=== PATIENT | female | born 1965 | race Caucasian/White ===

== ENCOUNTER 2019-04-24 17:14 | Emergency (ER) | payer OTHER, SELFPAY ==
[2019-04-24 17:18] VITALS: BP 146/90; PULSE 86; RESP 20; TEMP 36.4; O2SAT 97; BMI 44.6
[2019-04-24 17:51] LABS: Add Manual Diff / Slide Review NO; Basophils Absolute Auto 100 /uL (0-100); Basophils Percent Auto 1.3 % (0-2); Eosinophils Absolute Auto 300 /uL (0-450); Eosinophils Percent Auto 2.9 % (2-4); Hematocrit 40.1 % (36-46); Hemoglobin 13.4 g/dL (12.0-16.0); Lymphocytes Absolute Auto 2200 /uL (1100-4500); Lymphocytes Percent Auto 24.2 % (25-40); Mean Corpuscular HGB Conc 33.3 % (30-36); Mean Corpuscular Hemoglobin 29.1 PG (26-34); Mean Corpuscular Volume 87.3 fL (80-100); Monocytes Absolute Auto 700 /uL (0-900); Monocytes Percent Auto 7.3 % (3-14); Neutrophils Absolute Auto 5900 /uL (1500-7000); Neutrophils Percent Auto 64.3 % (50-75); Platelet Count 219 X10^3/uL (150-400); Red Cell Distribution Width 14.8 % (11.6-14.8); White Blood Cell Count 9.1 X10^3/uL (4.5-11.0)
[2019-04-24 17:56] LABS: INR 1.1 (0.9-1.3); Prothrombin Time 12.5 SECONDS (10.1-12.7)
[2019-04-24 17:57] LABS: Alanine Aminotransferase 46 IU/L (9-52); Albumin 4.4 g/dL (3.5-5.0); Albumin Globulin Ratio 1.4 (1.0-2.8); Alkaline Phosphatase 125 U/L (38-126); Aspartate Aminotransferase 50 IU/L (14-36); BUN Creatinine Ratio 22.5 (6-22); Bilirubin Total 0.4 mg/dL (0.2-1.3); Blood Urea Nitrogen 18 mg/dL (7-17); Calcium 10.2 mg/dL (8.4-10.2); Carbon Dioxide 31 mmol/L (22-32); Chloride 102 mmol/L (98-107); Estimated Glomerular Filt Rate > 60.0 mL/min (>60); Globulin 3.2 g/dL (1.7-4.1); Glucose 98 mg/dL (70-100); HEMOLYSIS < 15 (0-50); Potassium 4.2 mmol/L (3.4-5.1); Sodium 142 mmol/L (137-145); Total Protein 7.6 g/dL (6.3-8.2)
[2019-04-24 17:59] LABS: PTT Partial Thromboplastin Tim 41 SECONDS (26.4-36.2)
--- NOTE | 2019-04-24 18:50 | ED.FEMALEGU ---
HPI - Female Genitourinary General Chief complaint: Vaginal Bleeding Stated complaint: heavy vaginal bleeding x5hrs Time Seen by Provider: 04/24/19 18:33 Source: patient Mode of arrival: ambulatory Limitations: no limitations History of Present Illness HPI Narrative: Patient is a 53-year-old female here for evaluation of vaginal bleeding. Patient states the vaginal bleeding started today. States that was a fairly sudden onset while she was at work. Is having some lower abdominal cramping. She states that it is more bleeding than what her menstrual cycles use to be. She underwent menopause approximately 12 years ago. Her mother and grandmother both underwent menopause early in life. Patient states she is not currently on any control. Denies any urinary symptoms. No bowel changes. Denies any recent intercourse. Still has uterus. Related Data Allergies Allergy/AdvReac Type Severity Reaction Status Date / Time FENTANYL Allergy Severe NAUSEA/VOMI Uncoded 01/24/18 12:29 TING IBUPROFEN Allergy Severe FLANK Uncoded 01/24/18 12:29 PAIN, FEET SWELLING Review of Systems Constitutional Denies fever(s) and Denies headache(s) ENT Ears, Nose, Mouth, and Throat: Denies headache(s) Cardiovascular Denies chest pain and Denies dyspnea Respiratory Denies dyspnea Gastrointestinal Gastrointestinal: Reports abdominal pain, Reports cramping, Denies nausea and Denies vomiting Genitourinary Denies dysuria Comments: Vaginal bleeding Musculoskeletal Denies abnormal gait Integumentary/Breasts Denies rash Neurologic Denies abnormal gait and Denies headache(s) Hematologic/Lymphatic Denies easy bleeding and Denies easy bruising [facility] Medical History (Updated 04/25/19 @ 03:32 by Nelson Farrell DO) Atrial fibrillation (Acute) Healthy adult (Acute) Social History Smoking Status: Never smoker Social History Smoking Status: Never smoker Exam Initial Vital Signs Initial Vital Signs: Vital Signs Temperature 97.6 F 04/24/19 17:18 Pulse Rate 86 04/24/19 17:18 Respiratory Rate 20 04/24/19 17:18 Blood Pressure 146/90 H 04/24/19 17:18 Pulse Oximetry 97 04/24/19 17:18 Const General: cooperative, comfortable, well developed, well groomed and No acute distress Orientation: alert, awake and oriented x3 HENMT Head: normal to inspection and normocephalic Resp Effort & Inspection: normal respiratory effort Auscultation: clear to auscultation bilaterally Cardio Rate: regular rate Rhythm: regular rhythm GI Inspection: non-distended Palpation: soft and tender (Lower abdomen) Back/Spine/Pelvis Back: No CVA tenderness Skin Lesions: no lesions Rashes: no rashes Neuro General: alert, awake and oriented x3 Extrem General: normal to inspection and capillary refill normal Psych Appearance: grossly normal and well kempt Course Orders Ordered: ED Orders 04/24/19 19:01 US pelvic complete Stat Discontinued Medications Tramadol HCl (Ultram 50mg Prepack) 1 bottle MISC SEEINSTR ONE Stop: 04/24/19 22:10 Last Admin: 04/24/19 22:14 Dose: 1 bottle Vital Signs - 8 hr 04/24/19 19:36 04/24/19 20:30 04/24/19 21:00 Pulse Rate 63 75 69 Respiratory Rate 20 Blood Pressure [Left Arm] 126/62 120/67 123/69 Pulse Oximetry 98 100 97 04/24/19 21:30 04/24/19 22:15 Pulse Rate 68 76 Respiratory Rate Blood Pressure [Left Arm] 120/65 131/92 H Pulse Oximetry 99 99 MDM - Female Genitourinary Lab Data Attestation: I reviewed the patient's lab results. Result diagrams: 04/24/19 17:37 04/24/19 17:37 Lab Results 04/24/19 04/24/19 04/24/19 Range/Units 17:37 17:37 17:37 WBC 9.1 (4.5-11.0) X10^3/uL RBC 4.60 (4.0-5.2) X10^6/uL Hgb 13.4 (12.0-16.0) g/dL Hct 40.1 (36-46) % MCV 87.3 (80-100) fL MCH 29.1 (26-34) PG MCHC 33.3 (30-36) % RDW 14.8 (11.6-14.8) % Plt Count 219 (150-400) X10^3/uL Neut % (Auto) 64.3 (50-75) % Lymph % (Auto) 24.2 L (25-40) % [place] % (Auto) 7.3 (3-14) % Eos % (Auto) 2.9 (2-4) % Baso % (Auto) 1.3 (0-2) % Neut # (Auto) 5900 (3206-9602) /uL Lymph # (Auto) 2200 (1317-4180) /uL [place] # (Auto) 700 (0-900) /uL Eos # (Auto) 300 (0-450) /uL Baso # (Auto) 100 (0-100) /uL PT 12.5 (10.1-12.7) SECONDS INR 1.1 (0.9-1.3) APTT 41 H (26.4-36.2) SECONDS Sodium 142 (137-145) mmol/L Potassium 4.2 (3.4-5.1) mmol/L Chloride 102 (98-107) mmol/L Carbon Dioxide 31 (22-32) mmol/L BUN 18 H (7-17) mg/dL Creatinine 0.80 (0.52-1.04) mg/dL Estimated GFR > 60.0 (>60) mL/min BUN/Creatinine Ratio 22.5 H (6-22) Glucose 98 (70-100) mg/dL Calcium 10.2 (8.4-10.2) mg/dL Total Bilirubin 0.4 (0.2-1.3) mg/dL AST 50 H (14-36) IU/L ALT 46 (9-52) IU/L Alkaline Phosphatase 125 (38-126) U/L Total Protein 7.6 (6.3-8.2) g/dL Albumin 4.4 (3.5-5.0) g/dL Globulin 3.2 (1.7-4.1) g/dL Albumin/Globulin Ratio 1.4 (1.0-2.8) Imaging Data US - abdomen: Radiologist's impression: [address] [address] Ultrasound Report Signed Patient: Alem Dos Santos EMR#: [id number] : 1965Acct:[id number] Age/Sex: 53 / FDate of Service: 04/24/19 Loc: ED Accession Number: [id number] Procedure: US pelvic complete Ordering Provider: Nelson Farrell D.O. PROCEDURE: US PELVIC COMPLETE INDICATIONS: BLEEDING TECHNIQUE: Real-time scanning was performed of the pelvic organs, with image documentation. Additional endovaginal scanning was necessary due to incomplete visualization of the adnexal and endometrial structures by transabdominal scanning. COMPARISON: None. FINDINGS: Transabdominal scanning: Limited scanning through the kidneys shows no hydronephrosis. No pathologic free abdominal or pelvic fluid. Endovaginal scanning: Uterus: Uterus measures 7.4 x 3.0 x 4.6 cm. The endometrium measures 1.1 cm in combined thickness and appears heterogeneous with internal vascularity on color Doppler interrogation. Ovaries: The ovaries were not discretely visualized. No definite adnexal masses identified. IMPRESSION: 1. Abnormal heterogeneous thickening of the endometrium with internal vascularity. In a postmenopausal patient, the differential includes an endometrial mass, polyp, or endometrial hyperplasia. Recommend correlation clinically and further evaluation with hysteroscopy or pelvic MRI. Dictated by: Aldair Jones M.D. on 04/24/2019 at 21:41 Approved by: Aldair Jones M.D. on 04/24/2019 at 21:43 [facility] Narrative Medical decision making narrative: Patient is currently on anticoagulation secondary to paroxysmal atrial fibrillation. Her blood counts are unremarkable. The ultrasound does show a thickened endometrium and given that she is postmenopausal this is concerning for cancers. I discussed the ultrasound findings with the patient and informed her that she did need to follow up with her primary doctor regarding these ultrasound findings and discuss the indications for referral to see lock tender chief operator. She stated that she already had an appointment with her primary doctor scheduled later this week. We did discuss options here to include starting her on control to help control the bleeding however the patient declined and would rather talk with her primary provider. Patient was given return precautions and follow-up instructions. She expressed understanding and agreement with plan. Discharge Plan Departure Patient Disposition: Home Clinical Impression: Vaginal bleeding Discharge Date/Time: 04/24/19 22:15 Interventions: ED Discharge Assessment Last Done: 04/24/19 22:24 Instructions: DI for Vaginal Bleeding Activity Restrictions/Additional Instructions: Keep your appointment tomorrow with your primary provider to discuss the indications for referral to see lock tender chief operator. Return to the emergency department for any new or worsening symptoms like we discussed Referrals: Joan Taylor [Primary Care Provider] -
--- NOTE | 2019-04-24 18:53 | PC.NURSE ---
pt started with cramping yesterday, today at 12 noon pt developed large amount of bleeding. pt has been in menopause for 12 years.
--- NOTE | 2019-04-24 19:01 | DI.US.S_ITS ---
PROCEDURE: US PELVIC COMPLETE INDICATIONS: BLEEDING TECHNIQUE: Real-time scanning was performed of the pelvic organs, with image documentation. Additional endovaginal scanning was necessary due to incomplete visualization of the adnexal and endometrial structures by transabdominal scanning. COMPARISON: None. FINDINGS: Transabdominal scanning: Limited scanning through the kidneys shows no hydronephrosis. No pathologic free abdominal or pelvic fluid. Endovaginal scanning: Uterus: Uterus measures 7.4 x 3.0 x 4.6 cm. The endometrium measures 1.1 cm in combined thickness and appears heterogeneous with internal vascularity on color Doppler interrogation. Ovaries: The ovaries were not discretely visualized. No definite adnexal masses identified. IMPRESSION: 1. Abnormal heterogeneous thickening of the endometrium with internal vascularity. In a postmenopausal patient, the differential includes an endometrial mass, polyp, or endometrial hyperplasia. Recommend correlation clinically and further evaluation with hysteroscopy or pelvic MRI. Dictated by: Aldair Jones M.D. on 04/24/2019 at 21:41 Approved by: Aldair Jones M.D. on 04/24/2019 at 21:43
[2019-04-24 19:36] VITALS: BP 126/62; PULSE 63; RESP 20; O2SAT 98
[2019-04-24 20:30] VITALS: BP 120/67; PULSE 75; O2SAT 100
[2019-04-24 21:00] VITALS: BP 123/69; PULSE 69; O2SAT 97
[2019-04-24 21:30] VITALS: BP 120/65; PULSE 68; O2SAT 99
[2019-04-24] MEDS: TRAMADOL 50 MG PREPACK 1 BOTTLE MISC (22:14)
[2019-04-24 22:15] VITALS: BP 131/92; PULSE 76; O2SAT 99
== END 2019-04-24 22:15 | disposition home or self-care (01) ==
PROVIDERS: Emergency Medicine; Emergency Provider Emergency Medicine; Family Provider Nurse Practitioner Family; PCP Nurse Practitioner Family
DX: N93.9 Abnormal uterine and vaginal bleeding, unspecified (principal)
CPT/HCPCS: 36415; 76830; 76856; 80053; 85025; 85610; 85730; 99283; 99285

== ENCOUNTER → 2020-11-30 09:29 | Outpatient (CLI) | payer OTHER, SELFPAY ==
--- NOTE | 2020-11-30 09:31 | DI.RAD.S_ITS ---
PROCEDURE: FL UPPER GI SERIES INDICATIONS: Bariatric surgery status, the patient stated that there is some degree of concern that dehiscence of a prior gastric reduction surgery has occurred. She stated there is concern for possible extravasation of oral contrast related to this. For this reason Gastrografin was utilized as the oral contrast rather than barium. COMPARISON: None. FINDINGS: KUB: Preprocedural security expert film demonstrates a normal bowel gas pattern. No suspicious abdominal calcifications. Visualized solid organ contours appear normal. Bony structures appear unremarkable. Esophagus: There is normal esophageal peristalsis. No strictures, extrinsic mass effects, or diverticula. No elicited gastroesophageal reflux. No hiatal hernia. Stomach: Stomach is distensible but relatively small in size, without extrinsic mass effects. Pylorus and duodenal bulb demonstrate normal single-contrast morphology. There is ready transit of contrast through the gastric outlet into the small bowel. IMPRESSION: At no point over the course of this examination was evidence of gastric perforation seen or Gastrografin extravasation along the gastric margins. Normal peristalsis was seen within the esophagus and small bowel, including the duodenum. The morphology of the stomach over the cardia and body suggest prior gastric reduction surgery. Oral contrast transit ink through the stomach into the duodenum and proximal small bowel showed normal motility. Dictated by: Gareth Helton M.D. on 11/30/2020 at 15:43 Approved by: Gareth Helton M.D. on 11/30/2020 at 15:47
== END ==
PROVIDERS: Family Provider Nurse Practitioner Family; PCP Nurse Practitioner Family; Referring Provider Internal Medicine; Visit Provider Internal Medicine
DX: Z09 Encounter for follow-up examination after completed treatment for conditions other than malignant neoplasm (principal); Z98.84 Bariatric surgery status
CPT/HCPCS: 74240